=== PATIENT | male | born 1980 | race Caucasian/White ===

== ENCOUNTER 2018-11-12 22:05 | Emergency (ER) | payer SELFPAY ==
[2018-11-12 22:54] VITALS: BP 140/95
== END 2018-11-12 23:38 | disposition left against medical advice (07) ==
LOC: ER 22:05
DX: Z53.21 Procedure and treatment not carried out due to patient leaving prior to being seen by health care provider (principal); M79.605 Pain in left leg

== ENCOUNTER 2018-11-24 10:24 | Emergency (ER) | payer SELFPAY ==
[2018-11-24 10:30] VITALS: BP 125/88
[2018-11-24] MEDS ORDERED: ACETAMINOPHEN 325 MG TABLET PO ONE (10:54)
[2018-11-24] MEDS ORDERED: METHOCARBAMOL 500 MG TABLET PO ONE (10:54)
--- NOTE | 2018-11-24 11:00 | ER Document Report ---
HPI - HPI Time Seen by Provider: 11/24/18 10:43 Pain Level: 2 Context: Patient is a 38-year-old male who presents to the emergency department for left leg pain. Patient states that 2 weeks ago he was on a ladder about 3 feet up when he was attempting to hang a picture on the wall. Patient states there was a table right next to him in which he used his left leg to stabilize. Patient states that the table gave way causing him to fall on his left leg. States initially he did not have any pain but within 24 hours developed left calf pain and left lateral lower extremity pain. Patient states he is attempted to use ice, elevation, ibuprofen, Tylenol and crutches with minimal relief. Patient states he sought care as he continue to have pain. Patient denies redness to the calf. Patient states he has had some swelling to the left calf as well as the left lateral lower extremity. Patient denies any other injury during the fall. Patient denies left knee pain or left ankle pain. Patient denies head injury or loss of consciousness. Patient denies neck pain. - CONSTITUTIONAL Constitutional: DENIES: Fever, Chills - EENT EENT: DENIES: Sore Throat, Ear Pain, Eye problems - NEURO Neurology: DENIES: Headache, Weakness, Vision blurred, Dizzinesss / Vertigo - CARDIOVASCULAR Cardiovascular: DENIES: Chest pain - RESPIRATORY Respiratory: DENIES: Trouble Breathing, Coughing - GASTROINTESTINAL Gastrointestinal: DENIES: Abdominal Pain, Black / Bloody Stools - URINARY Urinary: DENIES: Dysuria, Urgency, Frequency - MUSCULOSKELETAL Musculoskeletal: REPORTS: Extremity pain - LLE Past Medical History - General Information source: Patient - Social History Smoking Status: Current Every Day Smoker Chew tobacco use (# tins/day): No Frequency of alcohol use: Social Drug Abuse: None Lives with: Spouse/Significant other Family History: Arthritis, CVA, DM, Hyperlipidemia, Hypertension, Malignancy Patient has suicidal ideation: No Patient has homicidal ideation: No - Past Medical History Cardiac Medical History: Reports: None Pulmonary Medical History: Reports: None EENT Medical History: Reports: None Neurological Medical History: Reports: None Endocrine Medical History: Reports: None Renal/ Medical History: Reports: None. Denies: Hx Peritoneal Dialysis Malignancy Medical History: Reports None GI Medical History: Reports: None Musculoskeletal Medical History: Reports Hx Musculoskeletal Trauma Skin Medical History: Reports None Psychiatric Medical History: Reports: None Traumatic Medical History: Reports: Hx Fractures - Arm Infectious Medical History: Reports: None Surgical Hx: Negative - Immunizations Immunizations up to date: Yes Hx Diphtheria, Pertussis, Tetanus Vaccination: Yes Vertical Provider Document - CONSTITUTIONAL Agree With Documented VS: Yes Exam Limitations: No Limitations General Appearance: No Apparent Distress Notes: GENERAL: Well-appearing, well-nourished and in no acute distress. HEAD: Atraumatic, normocephalic. EYES: Pupils equal round and reactive to light, extraocular movements intact, sclera anicteric, conjunctiva are normal. ENT: Nares patent, oropharynx clear without exudates. Moist mucous membranes. NECK: Normal range of motion, supple without lymphadenopathy or JVD. LUNGS: Breath sounds clear to auscultation bilaterally and equal. No wheezes ra les or rhonchi. HEART: Regular rate and rhythm without murmurs, rubs or gallops. ABDOMEN: Soft, nontender, normoactive bowel sounds. No guarding, no rebound. No masses appreciated. BACK: No cervical, thoracic, lumbar midline tenderness. No saddle anesthesia, normal distal neurovascular exam. GENITOURINARY: Deferred. EXTREMITIES: Normal range of motion, No clubbing or cyanosis. Mild amount of e magalys to the left calf, tenderness with palpation over the left fibula. No ecchymosis or erythema. Patient has a strong +2 dorsalis pedia pulse, posterior tibial pulse and popliteal pulse. Patient has AROM to the left knee with no difficulty with flexion and extension. AROM to left ankle. Left knee and left ankle are unremarkable without ecchymosis, erythema, deformity. NEUROLOGICAL: Cranial nerves II through XII grossly intact. Normal speech, normal gait. PSYCH: Normal mood, normal affect. SKIN: Warm, Dry, normal turgor, no rashes or lesions noted. - INFECTION CONTROL TRAVEL OUTSIDE OF THE [place] IN LAST 30 DAYS: No Course - Re-evaluation Re-evalutation: 11/24/18 10:59 Patient has been using conservative measures including ice, elevation, ibuprofen, Tylenol and crutches with minimal relief. Since the injury occurred 2 weeks ago I will obtain a x-ray to rule out fracture. My suspicion is high for deep tissue injury without fracture. I did inform the patient that if his x-ray is negative he will continue to do ice and elevation as well as using the crutches. I will refer the patient to orthopedics if he continues to have pain over the next few weeks. 11/24/18 11:50 Since x-ray was negative for any acute abnormality to include dislocation and fracture. I did discuss the findings with the patient. Patient to continue using crutches, ice and elevation. I did inform the patient that ice is initially used during the first few days after injury but he may want to use a warm pack to the area. Take Tylenol or ibuprofen as needed for pain. Follow-up with orthopedics if not feeling better. - Vital Signs Vital signs: Temp Pulse Resp BP Pulse Ox 97.4 F 108 H 20 125/88 H 95 11/24/18 10:30 11/24/18 10:30 11/24/18 10:30 11/24/18 10:30 11/24/18 10:30 Discharge - Discharge Clinical Impression: Leg pain, left Fall Qualifiers: Encounter type: initial encounter Qualified Code(s): W19.XXXA - Unspecified fall, initial encounter Condition: Stable Disposition: HOME, SELF-CARE Additional Instructions: Today you were seen in the emergency department for left leg pain. Your x-ray was negative for any acute fracture. Continue to use Tylenol and ibuprofen. Continue to use your crutches to rest the area. Your symptoms could be associated with a deep tissue injury (such as a hematoma - a bruise) which does take multiple weeks to heal. Continue to rest elevate the extremity to help with swelling. You may want to try to use heat to the area as this may be more comfortable to you versus ice. I did provide referrals to to orthopedic physicians in the area if you continue to have pain over the next few weeks as you may need additional testing. Please return to the emergency department if the leg becomes more swollen, red, hot to touch, discolored or increasingly painful. Rest the leg. Pain can be eased with an antiinflammatory pain medicine such as ibuprofen. If the pain involves a small area, a heating pad might help. Call the doctor or return if the leg becomes swollen, weak, discolored, or increasingly painful, or if you develop any other significant change in your health. Referrals: DUTCH SEWELL DO [ACTIVE STAFF] - Follow up as needed SABINA ARRIAZA MD [ACTIVE STAFF] - Follow up as needed
--- NOTE | 2018-11-24 11:47 | RADIOLOGY REPORT (SQ) ---
EXAM DESCRIPTION: TIBIA FIBULA LEFT COMPLETED DATE/TIME: 11/24/2018 11:31 am REASON FOR STUDY: fall x 2 weeks ago, continued pain COMPARISON: None. NUMBER OF VIEWS: Two views. TECHNIQUE: Two radiographic images acquired of the left tibia and fibula to include the knee and ank le in at least one projection. LIMITATIONS: None. FINDINGS: MINERALIZATION: Normal. BONES: No acute fracture or dislocation. No worrisome bone lesions. SOFT TISSUES: No obvious swelling or foreign body. OTHER: No other significant finding. IMPRESSION: NEGATIVE STUDY OF THE LEFT TIBIA AND FIBULA. NO RADIOGRAPHIC EVIDENCE OF ACUTE INJURY. TECHNICAL DOCUMENTATION: JOB ID: [id number] [employer]- All Rights Reserved Reading location - IP/workstation name: [email or web address]
== END 2018-11-24 12:00 | disposition home or self-care (01) ==
LOC: ER 10:24
DX: M79.662 Pain in left lower leg (principal); W11.XXXA Fall on and from ladder, initial encounter; Y93.89 Activity, other specified; F17.200 Nicotine dependence, unspecified, uncomplicated; R60.0 Localized edema
CPT/HCPCS: 99283

== ENCOUNTER 2019-01-16 11:13 | Emergency (ER) | payer SELFPAY ==
--- NOTE | 2019-01-16 12:10 | ER Document Report ---
ED Medical Screen (RME) - General Chief Complaint: Leg Pain Stated Complaint: LEG PAIN Time Seen by Provider: 01/16/19 11:42 Mode of Arrival: Ambulatory Information source: Patient Notes: Patient presents stating that he is out of his Xarelto. Patient states that he has a DVT in the left lower leg that was diagnosed last month. Patient states that he has been off the medication for the past 4 days and did have an episode of chest pain 2 days ago. Patient denies any chest pain at present or any shortness of breath. I have greeted and performed a rapid initial assessment of this patient. A comprehensive ED assessment and evaluation of the patient, analysis of test results and completion of the medical decision making process will be conducted by additional ED providers. TRAVEL OUTSIDE OF THE [place] IN LAST 30 DAYS: No - Related Data Allergies/Adverse Reactions: No Known Allergies Allergy (Verified 01/16/19 11:13) Past Medical History Renal/ Medical History: Denies: Hx Peritoneal Dialysis Musculoskeltal Medical History: Reports Hx Musculoskeletal Trauma Traumatic Medical History: Reports: Hx Fractures - Arm - Immunizations Immunizations up to date: Yes Hx Diphtheria, Pertussis, Tetanus Vaccination: Yes Physical Exam - Vital signs Vitals: Temp Pulse Resp BP Pulse Ox 98.2 F 67 16 175/105 H 98 01/16/19 11:24 01/16/19 11:24 01/16/19 11:24 01/16/19 11:24 01/16/19 11:24 - General Notes: Left lower extremity tenderness with edema, 2+ dorsalis pedis pulse Course - Re-evaluation Re-evalutation: 01/16/19 12:[address] Farias who recommends CT of the chest given reported history of chest pain - Vital Signs Vital signs: Temp Pulse Resp BP Pulse Ox 98.2 F 67 16 175/105 H 98 01/16/19 11:24 01/16/19 11:24 01/16/19 11:24 01/16/19 11:24 01/16/19 11:24
[2019-01-16 12:50] LABS: INTERNATIONAL RATION (INR) 0.91; PROTHROMBIN TIME 12.2 SEC (11.4-15.4)
[2019-01-16 12:51] LABS: PARTIAL THROMBOPLASTIN TIME 24.2 SEC (23.5-35.8)
[2019-01-16 12:58] LABS: ABSOLUTE EOSINOPHILS # (AUTO) 0.1 10^3/uL (0.0-0.6); ABSOLUTE LYMPHOCYTES (AUTO) 2.1 10^3/uL (0.5-4.7); ABSOLUTE MONOCYTES (AUTO) 0.6 10^3/uL (0.1-1.4); ABSOLUTE NEUT (AUTO) 3.7 10^3/uL (1.7-8.2); BASOPHILS % (AUTO) 0.7 % (0-2); HEMATOCRIT 51.9 % (37.9-51.0); LYMPHOCYTES % (AUTO) 32.7 % (13-45); MEAN CORPUSCULAR HEMOGLOBIN 38.4 pg (27.0-33.4); MEAN CORPUSCULAR HGB CONC 34.7 g/dL (32.0-36.0); MONOCYTES % (AUTO) 8.9 % (3-13); PLATELET COUNT 157 10^3/uL (150-450); RED BLOOD COUNT 4.69 10^6/uL (4.35-5.55); RED CELL DISTRIBUTION WIDTH 14.7 % (11.5-14.0); SEGMENTED NEUTROPHILS % (AUTO) 56.7 % (42-78); TOTAL CELLS COUNTED % (AUTO) 100 %; WHITE BLOOD COUNT 6.6 10^3/uL (4.0-10.5)
[2019-01-16 13:02] LABS: MEAN CORPUSCULAR VOLUME 111 fl (80-97)
[2019-01-16 13:03] LABS: ALBUMIN 3.9 g/dL (3.5-5.0); ALKALINE PHOSPHATASE 96 U/L (38-126); ANION GAP 6 (5-19); ASPARTATE AMINO TRANSFERASE 77 U/L (17-59); BILIRUBIN,DIRECT 0.4 mg/dL (0.0-0.4); BILIRUBIN,TOTAL 0.6 mg/dL (0.2-1.3); BLOOD UREA NITROGEN 8 mg/dL (7-20); CALCIUM 9.9 mg/dL (8.4-10.2); CARBON DIOXIDE 33 mmol/L (22-30); CHLORIDE 103 mmol/L (98-107); GLUCOSE 107 mg/dL (75-110); POTASSIUM 3.9 mmol/L (3.6-5.0)
[2019-01-16 13:21] LABS: ANISOCYTOSIS SLIGHT; PLATELET COMMENT ADEQUATE
--- NOTE | 2019-01-16 13:36 | RADIOLOGY REPORT (SQ) ---
EXAM DESCRIPTION: CTA CHEST COMPLETED DATE/TIME: 01/16/2019 1:23 pm REASON FOR STUDY: cp, off anticoagulant COMPARISON: None. TECHNIQUE: CT scan of the chest performed using helical scanning technique with dynamic intravenous contrast injection. Images reviewed with lung, soft tissue and bone windows. Reconstructed coronal and sagittal MPR images reviewed. Additional 3 dimensional post-processing performed to develop Maximal Intensity Projection images (OR P). All images stored on PACS. All CT scanners at this facility use dose modulation, iterative reconstruction, and/or weight based d osing when appropriate to reduce radiation dose to as low as reasonably achievable (ALARA). [facility]: Dose Right [facility]: CareDose [facility]: Dose Right [facility]: Teradose 4D [facility]: Eventcheq CONTRAST TYPE AND DOSE: 52 mL Omnipaque 350- low osmolar. Contrast bolus optimized for the pulmonary arteries. Not diagnostic for the aorta RENAL FUNCTION: BUN 8 creatinine 0.92c RADIATION DOSE: CT Rad equipment meets quality standard of care and radiation dose reduction techniq ues were employed. CTDIvol: 9.9 - 14.3 mGy. DLP: 514 mGy-cm. . LIMITATIONS: None. FINDINGS: LUNGS AND PLEURA: No masses, infiltrates, or pneumothorax. No pleural effusions or pleura l calcifications. AORTA AND GREAT VESSELS: No aneurysm. Contrast bolus not optimized for the aorta. HEART: No pericardial effusion. No significant coronary artery calcifications. PULMONARY ARTERIES: No emboli visualized in the main pulmonary arteries or the segmental branches. HILAR AND MEDIASTINAL STRUCTURES: No identified masses or abnormal nodes. HARDWARE: None in the chest. UPPER ABDOMEN: No significant findings. Limited exam. THYROID AND OTHER SOFT TISSUES: No masses. No adenopathy. BONES: No acute or significant finding. 3D MIPS: Confirm above findings. OTHER: No other significant finding. IMPRESSION: NORMAL CTA OF THE CHEST. NO PULMONARY EMBOLI. COMMENT: Quality ID # [id number]: Final reports with documentation of one or more dose reduction techniques (e.g., Automated exposure control, adjustment of the mA and/or kV according to patient size, use of iterative reconstruction technique) TECHNICAL DOCUMENTATION: JOB ID: [id number] [employer]- All Rights Reserved Reading location - IP/workstation name: [email or web address]
[2019-01-16 15:15] VITALS: BP 179/111
[2019-01-16] MEDS ORDERED: RIVAROXABAN 10 MG TABLET PO ONE (15:18)
--- NOTE | 2019-01-16 15:28 | ER Document Report ---
ED General - General Chief Complaint: Leg Pain Stated Complaint: LEG PAIN Time Seen by Provider: 01/16/19 11:42 Mode of Arrival: Ambulatory TRAVEL OUTSIDE OF THE [place] IN LAST 30 DAYS: No - HPI Notes: Patient is a 38-year-old male who presents to the emergency department for evalu ation of left leg pain and known DVT. He was diagnosed with a DVT at Only last month. He was given a month of free Xarelto. He took it until Wednesday, at which point he ran out. He has not yet followed up with primary care. He states he was referred on to hematology, but was deferred by them to try and obtain another physician. He has not had any LOC. He states on Wednesday he had an episode of chest pain with some associated shortness of breath. He cannot describe it for me beyond saying "my heart hurt." It only lasted a few seconds, was not exertional, but was associated with shortness of breath. - Related Data Allergies/Adverse Reactions: No Known Allergies Allergy (Verified 01/16/19 11:13) Past Medical History - General Information source: Patient - Social History Smoking Status: Current Every Day Smoker Chew tobacco use (# tins/day): No Family History: Arthritis, CVA, DM, Hyperlipidemia, Hypertension, Malignancy Patient has suicidal ideation: No Patient has homicidal ideation: No - Past Medical History Cardiac Medical History: Reports: Hx DVT Renal/ Medical History: Denies: Hx Peritoneal Dialysis Musculoskeletal Medical History: Reports Hx Musculoskeletal Trauma Traumatic Medical History: Reports: Hx Fractures - Arm - Immunizations Immunizations up to date: Yes Hx Diphtheria, Pertussis, Tetanus Vaccination: Yes Review of Systems - Review of Systems Constitutional: No symptoms reported EENT: No symptoms reported Cardiovascular: See HPI Respiratory: No symptoms reported Gastrointestinal: No symptoms reported Genitourinary: No symptoms reported Musculoskeletal: See HPI Skin: No symptoms reported Neurological/Psychological: No symptoms reported Physical Exam - Vital signs Vitals: Temp Pulse Resp BP Pulse Ox 98.2 F 67 16 175/105 H 98 01/16/19 11:24 01/16/19 11:24 01/16/19 11:24 01/16/19 11:24 01/16/19 11:24 - Notes Notes: Vital signs reviewed, please refer to chart. Head is normocephalic, atraumatic. Pupils equal round, reactive to light. Neck is supple without meningismus. Heart is regular rate and rhythm. Lungs are clear to auscultation bilaterally. Abdomen is soft, nontender, normoactive bowel sounds throughout. Extremities without cyanosis, clubbing. Posterior calf tenderness noted on the left with positive Homans as well. Peripheral pulses are equal. Skin is warm and dry. Patient is awake, alert, neurological exam is nonfocal. Course - Re-evaluation Re-evalutation: 01/16/19 15:26 Patient presents emergency department for evaluation. He had chest pain in the setting of a known DVT, was not compliant with his Xarelto. He is neurov ascularly intact to the left lower extremity, shows no signs of phlegmasia. CT angiogram was found to be unremarkable. Laboratory investigations largely unremarkable. He was given a dose of Xarelto here. I do have another Xarelto coupon to help him with the next month. I will refer his case on to case management to help obtain appropriate follow-up, perhaps bridged to Coumadin which would be more affordable. Patient is amenable to this plan. He is return to the ED with worsening or new concerning symptoms of any sort. - Vital Signs Vital signs: Temp Pulse Resp BP Pulse Ox 98.2 F 67 18 179/111 H 98 01/16/19 11:24 01/16/19 11:24 01/16/19 15:11 01/16/19 15:11 01/16/19 15:11 - Laboratory Result Diagrams: 01/16/19 12:25 01/16/19 12:25 Laboratory results interpreted by me: 01/16/19 01/16/19 12:25 12:25 Hgb 18.0 H Hct 51.9 H MCV 111 H MCH 38.4 H RDW 14.7 H Carbon Dioxide 33 H AST 77 H - Diagnostic Test Radiology reviewed: Reports reviewed Radiology results interpreted by me: 01/16/19 15:27 Chest/Abdomen CTA 01/16/19 12:07 IMPRESSION: NORMAL CTA OF THE CHEST. NO PULMONARY EMBOLI. - EKG Interpretation by Me Additional EKG results interpreted by me: 01/16/19 15:27 Sinus bradycardia with a rate of 56 bpm. Normal axis and intervals, no acute ST changes concerning for ischemia or infarction. Discharge - Discharge Clinical Impression: Deep venous thrombosis Qualifiers: DVT location: lower extremity Chronicity: unspecified Laterality: left Chest pain Qualifiers: Chest pain type: unspecified Qualified Code(s): R07.9 - Chest pain, unspecified Condition: Stable Disposition: HOME, SELF-CARE Instructions: DVT Outpatient Treatment ([facility]) Additional Instructions: You need to see primary care as soon as possible. Contact [facility] in [facility] to try get close follow-up. Fill Xarelto and take it as prescribed. If you develop chest pain, difficulty breathing, or any other new or concerning symptoms, return immediately to the emergency department for evaluation. Forms: Elevated Blood Pressure [facility]: [facility] [NO LOCAL MD] - Follow up as needed
[2019-01-17 16:43] LABS: PATH REVIEW PATHOLOGIST REVIEWED
--- NOTE | 2019-01-17 18:52 | ER Document Report ---
Doctor's Note Notes: 01/17/19 18:50 I received a call from the pharmacy stating the patient was unable to afford the Xarelto. The pharmacy stated there is no way to make the Xarelto cheaper. I asked about Eliquis and they stated that it was more expensive than Xarelto. I then asked about Coumadin and they stated that for 5 mg a day for 1 week it would be $20. Therefore I did change the prescription to Coumadin 5 mg once a day for 1 week. I then tried to call the patient to inform him of this change of his medication. I was also going to inform him of the need to follow-up with his doctor for further prescription and for monitoring of his INR. When I called the number on the demographic sheet I reached a "friend". This friend sa id he would get a hold of Mr. Goodman and have him call me.
--- NOTE | 2019-01-17 23:03 | EKG REPORT ---
SEVERITY:- NORMAL ECG - SINUS RHYTHM : Confirmed by: Milly Arndt 17-Jan-2019 23:03:17
--- NOTE | 2019-01-17 23:04 | EKG REPORT ---
SEVERITY:- ABNORMAL ECG - SINUS RHYTHM : Confirmed by: Milly Arndt 17-Jan-2019 23:03:43
== END 2019-01-16 15:41 | disposition home or self-care (01) ==
LOC: ER 11:13
DX: I82.402 Acute embolism and thrombosis of unspecified deep veins of left lower extremity (principal); R07.9 Chest pain, unspecified; M79.605 Pain in left leg; R06.02 Shortness of breath; Z79.01 Long term (current) use of anticoagulants; F17.200 Nicotine dependence, unspecified, uncomplicated
CPT/HCPCS: 36415; 71275; 80053; 85025; 85610; 85730; 93005; 93010; 99284